=== PATIENT | male | born 1975 | race Caucasian/White ===

== ENCOUNTER 2021-09-23 08:18 | Outpatient (CLI) | payer OTHER | END 2021-09-23 08:23 | disposition home or self-care (01) | LOC: NUCLEAR 08:18 | PROVIDERS: ATTEND Internal Medicine | DX: I50.20 Unspecified systolic (congestive) heart failure (principal) ==

== ENCOUNTER 2022-12-22 09:16 | Outpatient (CLI) | payer OTHER | END 2022-12-22 09:25 | disposition home or self-care (01) | LOC: NUCLEAR 09:16 | PROVIDERS: ATTEND Internal Medicine | DX: I50.20 Unspecified systolic (congestive) heart failure (principal); I11.0 Hypertensive heart disease with heart failure ==

== ENCOUNTER 2024-02-09 07:53 | Outpatient (CLI) | payer OTHER | END 2024-02-09 07:54 | disposition home or self-care (01) | LOC: NUCLEAR 07:53 | PROVIDERS: ATTEND Internal Medicine | DX: I10 Essential (primary) hypertension (principal); I50.20 Unspecified systolic (congestive) heart failure ==

== ENCOUNTER 2024-05-09 08:22 | Outpatient (CLI) | payer OTHER | END 2024-05-09 08:23 | disposition home or self-care (01) | LOC: NUCLEAR 08:22 | PROVIDERS: ATTEND Internal Medicine | DX: I50.20 Unspecified systolic (congestive) heart failure (principal); I10 Essential (primary) hypertension ==

== ENCOUNTER 2024-10-10 08:42 | Outpatient (CLI) | payer OTHER | END 2024-10-10 08:43 | disposition home or self-care (01) | LOC: NUCLEAR 08:42 | PROVIDERS: ATTEND Internal Medicine | DX: I42.7 Cardiomyopathy due to drug and external agent (principal) ==